=== PATIENT | male | born 1980 | race Hispanic/Latino ===

== ENCOUNTER 2018-05-21 19:14 | Emergency (ER) | payer MEDICARE ==
[~2018-05-21] VITALS: Ht 177.8 cm; Wt 108.4 kg
[~2018-05-21 19:14] MED LIST: ATORVASTATIN CA40 MG PO; BUDEPRION XL300 MG PO; BUPROPION XL300 MG PO; CLARITIN10 MG PO; CLOZAPINE100 MG PO; DIVALPROEX SOD500 M1 PO; DULOXETINE HCL60 MG PO; FENOFIBRATE160 MG PO; GEMFIBROZIL600 MG PO; GLUCOPHAGE1000 MG PO; LISINOPRIL10 MG PO; LORAZEPAM2 MG PO; METFORMIN HCL500 MG PO; MULTIVITAMIN PO; OMEPRAZOLE40 MG PO; PENICILLIN V P500 MG PO; SAPHRIS10 MG SL; SERTRALINE HCL50 MG PO; TRAZODONE HCL100 MG PO; ULTRAM50 MG PO; VITAMIN D250000 UNIT PO; ZITHROMAX250 MG PO; ZOLOFT50 MG PO; [UNRECOGNIZED DRUG - OTHER] PO
[2018-05-21] MEDS ORDERED: MONTELUKAST SOD10 MG PO (19:29)
[2018-05-21] MEDS ORDERED: CLOZAPINE ODT100 MG PO (19:32)
--- NOTE | 2018-05-22 07:57 | EKG ---
[facility] [address] [facility] [place], [place] [address] Signed Sinus tachycardia Otherwise normal ECG When compared with ECG of 02-MAR-2016 05:15, No significant change was found Confirmed by LEXI DIAZ MD ([id number]) on 05/22/2018 7:57:27 AM Electronically Signed By: LEXI DIAZ MD 05/22/18 [id number] PATIENT NAME: KERI ATKINSON JR Electrocardiogram DATE OF : 76 PHYSICIAN: LEXI DIAZ MD REPORT #: [id number] REPORT IS CONFIDENTIAL AND NOT TO BE RELEASED WITHOUT AUTHORIZATION
== END 2018-05-22 00:32 | disposition home or self-care (01) ==
LOC: ED 19:14
DX: R50.9 Fever, unspecified (principal); R05 Cough
CPT/HCPCS: 80053; 80176; 81001; 84443; 85025; 87502; 87880; 93005; 93010; 99283-25; G0480

== ENCOUNTER 2020-10-01 14:29 | Emergency (ER) | payer MEDICARE, OTHER ==
[~2020-10-01] VITALS: Ht 177.8 cm; Wt 108.4 kg
[~2020-10-01 14:29] MED LIST changes: +CLOZAPINE ODT100 MG PO; +MONTELUKAST SOD10 MG PO
--- OUTSIDE RECORDS SUMMARY | 2020-10-01 14:32 | XMS ---
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 Care Guidelines exist for the following facilities: [facility] ( 03/28/2020 ) [facility] MO.) [facility] NOTE: Visits indicate total known visits. ED/UCC VISIT TRACKING (12 MO.) 10/01/2020 14:[address] [facility] [place] TYPE: Emergency COMPLAINT: - MEDICATION REFILL INPATIENT VISIT TRACKING (12 MO.) No inpatient visits to display in this time frame [email or web address]
[2020-10-01] MEDS ORDERED: ATIVAN2 MG PO (15:38)
== END 2020-10-01 15:51 | disposition home or self-care (01) ==
LOC: ED 14:29
DX: F41.9 Anxiety disorder, unspecified (principal); Z76.0 Encounter for issue of repeat prescription; E11.9 Type 2 diabetes mellitus without complications; I10 Essential (primary) hypertension; Z88.8 Allergy status to other drugs, medicaments and biological substances; Z79.899 Other long term (current) drug therapy
CPT/HCPCS: 99283

== ENCOUNTER 2020-12-31 11:45 | Emergency (ER) | payer MEDICARE, OTHER ==
[~2020-12-31] VITALS: Ht 177.8 cm; Wt 108.4 kg
[~2020-12-31 11:45] MED LIST changes: +ATIVAN2 MG PO
[2020-12-31] MEDS ORDERED: ATIVAN2 MG PO (12:19)
== END 2020-12-31 12:25 | disposition home or self-care (01) ==
LOC: ED 11:45
DX: Z76.0 Encounter for issue of repeat prescription (principal); E11.9 Type 2 diabetes mellitus without complications; I10 Essential (primary) hypertension; Z88.8 Allergy status to other drugs, medicaments and biological substances; Z79.899 Other long term (current) drug therapy
CPT/HCPCS: 99281; A9270-GY

== ENCOUNTER 2021-04-02 15:42 | Emergency (ER) | payer MEDICARE, OTHER ==
[~2021-04-02] VITALS: Ht 177.8 cm; Wt 108.0 kg
--- OUTSIDE RECORDS SUMMARY | 2021-04-02 15:44 | XMS ---
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 Care Guidelines exist for the following facilities: [facility] ( 03/28/2020 ) Mauricio VISIT COUNT (12 MO.) 3 [facility] TOTAL 3 NOTE: Visits indicate total known visits. ED/UCC VISIT TRACKING (12 MO.) 04/02/2021 15:43 [facility] TYPE: Emergency COMPLAINT: - MEDICATION REFILL 12/31/2020 11:46 [facility] TYPE: Emergency COMPLAINT: - MEDICATION REFILL DIAGNOSES: - Encounter for issue of repeat prescription - Other intermediate (current) drug therapy - Allergy status to other drugs, medicaments and biological substances - Essential (primary) hypertension - Type 2 diabetes mellitus without complications 10/01/2020 14:31 [facility] [place] TYPE: Emergency COMPLAINT: - MEDICATION REFILL DIAGNOSES: - Allergy status to other drugs, medicaments and biological substances - Type 2 diabetes mellitus without complications - Essential (primary) hypertension - Other intermediate (current) drug therapy - Anxiety disorder, unspecified - Encounter for issue of repeat prescription INPATIENT VISIT TRACKING (12 MO.) No inpatient visits to display in this time frame [email or web address]
== END 2021-04-02 20:40 | disposition home or self-care (01) ==
LOC: ED 15:42
DX: Z76.0 Encounter for issue of repeat prescription (principal); E11.9 Type 2 diabetes mellitus without complications; I10 Essential (primary) hypertension; Z88.8 Allergy status to other drugs, medicaments and biological substances; Z79.899 Other long term (current) drug therapy
CPT/HCPCS: 99281; A9270-GY